=== PATIENT | male | born 1935 | race Caucasian/White ===

== ENCOUNTER → 2017-12-14 | Day surgery (SDC) | payer OTHER ==
[2017-12-06 08:44] VITALS: Ht 180.3 cm; Wt 93.2 kg
[~2017-12-14] VITALS: Ht 180.3 cm; Wt 93.2 kg
[~2017-12-14] MED LIST: AMIO200T4 PO; ASPI81TA28 PO; CARV12.52 PO; ETOMIDATE 2 MG/ML 20 ML VIAL IV ONE; FURO-85 PO; LIDOCAINE HCL 2% 2 ML VIAL (20MG/ML) ONE; LOVA40TA4 PO; LSN/2025 PO; MIDAZOLAM HCL 1 MG/ML 2ML VIAL ONE; ONDANSETRON INJ 2 MG/ML 2 ML VIAL IV PRN; ONDANSETRON INJ 2 MG/ML 2 ML VIAL ONE; PROPOFOL IV EMULSION 10 MG/ML 20 ML VIAL IV ONE; WARF1TAB6 PO; WARF5TAB7 PO
--- NOTE | 2017-12-14 11:23 | Endo History and Physical ---
History & Physical Date of Service: Dec 14, 2017. Chief Complaint: Anemia Referring Physician: Dr. Walter Holder History of Present Illness Patient referred for a colonoscopy to evaluate a history of anemia. His last colonoscopy was in 2003 and notable for several large colonic polyps. There is no family history of colorectal cancer. The patient denies having any bright red blood per rectum. Past Surgical History Hx Cardiac Surgery: Yes (PACEMAKER/DEFIB ([facility]) ,AVR, THORACIC AORTA ANEURYSM REPAIR) Hx Internal Defibrillator: Yes (PACEMAKER/DEFIB) Hx Pacemaker: Yes (PACEMAKER X3 THEN PACEMAKER/DEFIB) Hx Abdominal Surgery: No Hx of Implantable Prosthesis: No Hx Post-Op Nausea and Vomiting: No Hx Cancer Surgery: No Hx Thoracic Surgery: No Hx Orthopedic: No (RIGHT ANKLE ORIF AGE 18) Hx Urinary Tract Surgery: No Family History None Social History Smoking Status: Former Smoker Hx Substance Use: No Hx Alcohol Use: No Allergies Coded Allergies: Niacin (Verified Adverse Reaction, Unknown, FLUSH, 12/14/17) Uncoded Allergies: BROMFENEX (Adverse Reaction, Unknown, URINARY RETENTION, 11/20/10) DECONGESTANTS (Adverse Reaction, Unknown, URINARY RETENTION, 11/20/10) Current Medications Reported Home Medications Medications Dose Route/Sig Max Daily Dose Days Date Category Dose Instructions Jantoven (Warfarin Sodium) 1 Mg Tab 0.5 Mg PO SUN, TUE,TUE,Tuesday12/06/17 Reported PT WILL PHONE DR OFFICE TO FIND OUT WHEN HE IS TO STOP Jantoven (Warfarin Sodium) 5 Mg Tab 5 Mg PO T,TH,SAT 12/06/17 Reported Coreg (Carvedilol) 12.5 Mg Tab 12.5 Mg PO BID 12/06/17 Reported Lisinopril/Hctz 20/25 Mg (HCTZ/Lisinopril) 1 Ea Tab 1 Tab PO QAM 12/06/17 Reported Lasix (Furosemide) 20 Mg Tab 20 Mg PO QAM 12/06/17 Reported Aspirin Ec (Aspirin) 81 Mg Tab 81 Mg PO QAM 12/06/17 Reported Cordarone (Amiodarone Hcl) 200 Mg Tab 200 Mg PO BID 12/06/17 Reported Mevacor (Lovastatin) 40 Mg Tab 40 Mg PO HS 11/20/10 Reported Vital Signs Weight (Kilograms): 93.18 Height (Feet): 5 Height (Inches): 11 Date Time Temp Pulse Resp B/P (MAP) Pulse Ox O2 Delivery O2 Flow Rate FiO2 12/14/17 11:06 36.4 70 16 122/73 (89) 98 Room Air Physical Exam General Appearance: no apparent distress Respiratory/Chest: Auscultation: no wheezing Abdomen: Inspection & Palpation: soft Assessment and Plan Patient for colonoscopy today. We discussed the risks to include bleeding, infection, perforation and missed colonic polyps.
--- NOTE | 2017-12-14 12:01 | GI REPORT ---
Procedure Date: 12/14/2017 11:39 AM Procedure: Colonoscopy Indications: High risk colon cancer surveillance: Personal history of colonic polyps Medicines: Monitored Anesthesia Care Complications: No immediate complications. Estimated blood loss: Minimal. Estimated Blood Loss: Estimated blood loss was minimal. Procedure: Pre-Anesthesia Assessment: - Prior to the procedure, a History and Physical was performed, and patient medications, allergies and sensitivities were reviewed. The patient's tolerance of previous anesthesia was reviewed. - The risks and benefits of the procedure and the sedation options and risks were discussed with the patient. All questions were answered and informed consent was obtained. - Patient identification and proposed procedure were verified prior to the procedure by the physician, the nurse and the newspaper distributor supervisor. The procedure was verified in the procedure room. - Pre-procedure physical examination revealed no contraindications to sedation. - ASA Grade Assessment: IV - A patient with severe systemic disease that is a constant threat to life. - After reviewing the risks and benefits, the patient was deemed in satisfactory condition to undergo the procedure. - The anesthesia plan was to use monitored anesthesia care (MAC). - Immediately prior to administration of medications, the patient was re-assessed for adequacy to receive sedatives. - The heart rate, respiratory rate, oxygen saturations, blood pressure, adequacy of pulmonary ventilation, and response to care were monitored throughout the procedure. - The physical status of the patient was re-assessed after the procedure. After I obtained informed consent, the scope was passed under direct vision. Throughout the procedure, the patient's blood pressure, pulse, and oxygen saturations were monitored continuously. The scope was introduced through the anus and advanced to the terminal ileum. The colonoscopy was performed without difficulty. The patient tolerated the procedure well. The quality of the bowel preparation was good. Findings: The perianal and digital rectal examinations were normal. Pertinent negatives include normal sphincter tone. The terminal ileum appeared normal. A 7 mm polyp was found in the transverse colon. The polyp was sessile. The polyp was removed with a cold snare. Resection and retrieval were complete. To prevent bleeding after the polypectomy, one hemostatic clip was successfully placed (MR conditional, [employer]). There was no bleeding at the end of the procedure. Estimated blood loss was minimal. A few medium-mouthed diverticula were found in the sigmoid colon and descending colon. Internal hemorrhoids were found during retroflexion. The hemorrhoids were moderate. The exam was otherwise without abnormality. Impression: - The examined portion of the ileum was normal. - One 7 mm polyp in the transverse colon, removed with a cold snare. Resected and retrieved. Clip (MR conditional) was placed. - Mild diverticulosis in the sigmoid colon and in the descending colon. - Internal hemorrhoids. - The examination was otherwise normal. Recommendation: - Discharge patient to home (ambulatory). - Advance diet as tolerated today. - Await pathology results. - Repeat colonoscopy in 5 years for surveillance based on pathology results and health at that time. - If patient is iron deficient would suggest an upper endoscopy. Rashmi Adams D.O. Rashmi Adams, DO 12/14/2017 12:00:41 PM This report has been signed electronically. Note Initiated On: 12/14/2017 11:39 AM I attest to the content of the Intraoperative Record and orders documented therein, exceptions below
[2017-12-14 12:38] VITALS: BP 108/50; PULSE 72; O2SAT 97
--- NOTE | 2017-12-14 12:38 | Discharge Instructions ---
Endoscopy Patient Instructions Date / Procedure(s) Performed Dec 14, 2017. Colonoscopy Allergy Information Coded Allergies: Niacin (Verified Adverse Reaction, Unknown, FLUSH, 12/14/17) Uncoded Allergies: BROMFENEX (Adverse Reaction, Unknown, URINARY RETENTION, 11/20/10) DECONGESTANTS (Adverse Reaction, Unknown, URINARY RETENTION, 11/20/10) Discharge Date / Findings Dec 14, 2017. Hemorrhoids Diverticulosis 1 colon polyp Medication Instructions Stopped Medication(s): COUMADIN AND ASPIRIN WERE STOPPED Reported Home Medications Medications Dose Route/Sig Max Daily Dose Days Date Category Dose Instructions Jantoven (Warfarin Sodium) 1 Mg Tab 0.5 Mg PO TUE, TUE,TUE,Tuesday12/06/17 Reported PT WILL PHONE DR OFFICE TO FIND OUT WHEN HE IS TO STOP Jantoven (Warfarin Sodium) 5 Mg Tab 5 Mg PO ,,Tue12/06/17 Reported Coreg (Carvedilol) 12.5 Mg Tab 12.5 Mg PO BID 12/06/17 Reported Lisinopril/Hctz 20/25 Mg (HCTZ/Lisinopril) 1 Ea Tab 1 Tab PO QAM 12/06/17 Reported Lasix (Furosemide) 20 Mg Tab 20 Mg PO QAM 12/06/17 Reported Aspirin Ec (Aspirin) 81 Mg Tab 81 Mg PO QAM 12/06/17 Reported Cordarone (Amiodarone Hcl) 200 Mg Tab 200 Mg PO BID 12/06/17 Reported Mevacor (Lovastatin) 40 Mg Tab 40 Mg PO HS 11/20/10 Reported Provider Instructions Activity Restrictions - No exercising or heavy lifting for 24 hours. - Do not drink alcohol the day of the procedure. - Do not drive a car or operate machinery until the day after the procedure. - Do not make any important decisions or sign important papers in 24 hours after the procedure. Following Day: - Return to full activity which may include returning to work/school. Diet Start your diet with liquids and light foods (jello, soup, juice, toast). Then eat your usual diet if not nauseated. Treatment For Common After Affects For mild abdominal pain, bloating, or excessive gas: - Rest - Eat lightly - Lie on right side Follow-Up Information Follow-up with Dr. Walter Holder as scheduled Await pathology results May restart coumadin / lovenox as scheduled Anesthesia Information What You Should Know You have had a procedure that required some medicine to reduce anxiety and discomfort. This treatment is called moderate sedation. After receiving the treatment, you may be sleepy, but you will be able to breathe on your own. The effects of the treatment may last for several hours. Follow these instructions along with Activity/Diet recommendations noted above: * Do NOT do anything where dizziness or clumsiness would be dangerous. * Rest quietly at home today, then you can be up and about tomorrow. * Have a responsible person stay with you the rest of today. * You may have had an I.V. today. If so, you may take the dressing off later today. Recommendations Call your doctor if: * Trouble breathing * Continuous vomiting for more than 24 hours * Temperature above 101 degrees * Severe abdominal pain or bloating * Pain not relieved by pain medicine ordered * There is increased drainage or redness from any incision * A large amount of rectal bleeding greater than 2-3 tablespoons. (If you had a polyp/s removed or have hemorrhoids, a small amount of blood - from the rectum is to be expected.) * You have any unanswered questions or concerns. IN THE EVENT OF A SERIOUS EMERGENCY, GO TO THE NEAREST EMERGENCY ROOM Your discharge instructions were prepared by provider Rashmi Adams. Patient Instructions Signature Page Michael Massey Patient (or Guardian) Signature/Date: I have read and understand the instructions given to me by my caregivers. Caregiver/RN/Doctor Signature/Date: The above-named patient and/or guardian has received patient instructions on this date. + Original Patient Signature Page (only) stays with chart. Please make copy for patient.
--- NOTE | 2017-12-14 12:41 | Anesthesiology Progress Note ---
Anesthesia Post Op Note Date & Time Dec 14, 2017 at 12:41 Vital Signs Pain Intensity: 0 Vital Signs Past 12 Hours Date Time Temp Pulse Resp B/P (MAP) Pulse Ox O2 Delivery O2 Flow Rate FiO2 12/14/17 12:21 70 16 114/60 (78) 97 Room Air 12/14/17 12:06 71 16 102/61 (75) 97 Room Air 12/14/17 11:06 36.4 70 16 122/73 (89) 98 Room Air Notes Mental Status: alert / awake / arousable, participated in evaluation Pt Amnestic to Procedure: Yes Nausea / Vomiting: adequately controlled Pain: adequately controlled Airway Patency, RR, SpO2: stable & adequate BP & HR: stable & adequate Hydration State: stable & adequate Anesthetic Complications: no major complications apparent
== END | disposition home or self-care (01) ==
LOC: C.GI 10:34
PROVIDERS: ATTEND Internal Medicine Gastroenterology
DX: Z12.11 Encounter for screening for malignant neoplasm of colon (principal); D12.3 Benign neoplasm of transverse colon; D64.9 Anemia, unspecified; K57.30 Diverticulosis of large intestine without perforation or abscess without bleeding; K64.8 Other hemorrhoids; Z86.010 Personal history of colon polyps; Z95.0 Presence of cardiac pacemaker; Z95.810 Presence of automatic (implantable) cardiac defibrillator; Z87.891 Personal history of nicotine dependence; Z88.8 Allergy status to other drugs, medicaments and biological substances; Z79.01 Long term (current) use of anticoagulants; Z79.899 Other long term (current) drug therapy; Z79.82 Long term (current) use of aspirin